=== PATIENT | male | born 2000 | race Caucasian/White ===

== ENCOUNTER 2023-10-21 18:49 | Emergency (ER) | payer OTHER | END 2023-10-21 20:41 | disposition home or self-care (01) | LOC: ERS 18:49 | DX: B34.9 Viral infection, unspecified (principal) | CPT/HCPCS: 87081; 87430; 99283 ==

== ENCOUNTER 2023-10-30 09:04 | Emergency (ER) | payer OTHER ==
[2023-10-30] MEDS ORDERED: Acetaminophen 500 MG TAB ONE (09:41)
[2023-10-30] MEDS ORDERED: Ibuprofen 200 MG TAB ONE (09:42)
[2023-10-30 09:52] LABS: SARS-CoV-2 NAA Rapid Test DETECTED (NotDetected)
== END 2023-10-30 10:13 | disposition short-term general hospital (02) ==
LOC: ERS 09:04
DX: U07.1 COVID-19 (principal)
CPT/HCPCS: 71045